=== PATIENT | female | born 1975 | race African-American/Black ===

== ENCOUNTER 2024-12-25 16:58 | Emergency (ER) | payer OTHER, SELFPAY ==
--- NOTE | 2024-12-25 17:02 | ED.RECABL ---
HPI - Recheck/Abnormal Lab/Rx General Stated Complaint: Meds Refill Time Seen by Provider: 12/25/24 17:02 Source: patient Mode of arrival: ambulatory Limitations: no limitations History of Present Illness HPI narrative: Lauren is a 49-year-old female patient presenting to the clinic today for a medication refill. She reports she is out of her metoprolol tartrate 25 mg twice a day and her omeprazole 40 mg delayed release twice a day. States history of hypertension and GERD. Feels well controlled on these medications. States her insurance has changed and she is no longer able to see her primary care doctor and she is on the martinez for a new PCP. Review of Systems Review of Systems: Pertinent positives per HPI. Patient denies any fever, chills, rash, headache, visual changes, dizziness, cough, runny nose, sore throat, shortness of breath, chest pain, palpitations, nausea, vomiting, diarrhea, constipation, abdominal pain, or any urinary issues. PMFSH Comments At the time of my signature, I reviewed and agree with the nursing past medical, surgical, social, and family history. There is no relevant family history pertinent to the patient complaint. Exam Narrative: General: Well-developed, well nourished, in no apparent distress Head: Normocephalic, atraumatic. Cardio: Regular rate and rhythm, s1 and s2 normal, systolic grade 3/6 murmur appreciated. Resp: Clear to auscultation bilaterally, no rhonchi, rales, wheezing or rubs. Extremities: No deformity, no edema, no cyanosis, capillary refill less than 2 seconds, peripheral pulses palpable and strong. Integumentary: [place], warm, and dry, intact without lesion, no rashes. Course Course Emergency Course: Portions of this record may have been created with voice recognition software. Level of Care: Express Care Visit Vital Signs Vital signs: Vital signs reviewed MDM - Recheck/Abnormal Lab/Rx MDM Narrative Medical decision making narrative: At the time of visit patient is resting comfortably on the exam table. Patient appears to be nontoxic. Plan: Patient here for medication refill. Metoprolol and omeprazole prescriptions were sent to the pharmacy. Supportive measures were discussed with the patient and they voiced understanding discharge instructions and agrees to treatment plan. Return precautions reviewed Differential Diagnosis Differential diagnosis: Likely encounter for medication refill and other (Hypertension/GERD) Discharge Plan Discharge Clinical Impression: Encounter for medication refill, Hypertension, GERD without esophagitis Patient Disposition: Home Condition: Stable Instructions: Antibiotic Form, Hypertension (ED), Medicine Refill (ED), Gastroesophageal Reflux in Infants (ED) Additional Instructions: Medication refill for metoprolol and omeprazole was sent to the pharmacy Follow-up with your primary care doctor as discussed Patient Language: Japanese Prescriptions: New metoprolol tartrate 25 mg tablet 25 mg PO BID 30 Days Qty: 60 0RF omeprazole 40 mg capsule,delayed release(DR/EC) 40 mg PO BID 30 Days Qty: 60 0RF Follow-up/Referrals: UNKNOWN,DOCTOR [Non-Staff] - Time of Disposition: 17:19 Quality NIHSS Nursing Documentation ED NIHSS nursing documentation: reviewed/agree
[2024-12-25 17:23] VITALS: BP 112/74; PULSE 81; RESP 20; TEMP 36.9; O2SAT 99
== END 2024-12-25 17:43 | disposition home or self-care (01) ==
PROVIDERS: Emergency Provider Nurse Practitioner Family
DX: I10 Essential (primary) hypertension (principal); K21.9 Gastro-esophageal reflux disease without esophagitis
CPT/HCPCS: 99202; G0463